=== PATIENT | female | born 1980 | race Caucasian/White ===

== ENCOUNTER 2020-08-08 15:18 | Emergency (ER) | payer MEDICAID ==
[~2020-08-08] VITALS: Ht 160 cm; Wt 104.3 kg
--- NOTE | 2020-08-08 15:19 | NUR ---
Patient to ER bed 08 to gown for evaluation. Side rails up.
--- NOTE | 2020-08-08 15:20 | NUR ---
Pt brought by self, A&Ox4, pt presents to ER with R knee pain/ swelling after slip and fall today, skin pink and warm, cap refill <3, VSS.
[2020-08-08 15:28] VITALS: BP_SYST 158
--- NOTE | 2020-08-08 15:33 | NUR ---
Dr Mohamud evaluating patient at bedside
[2020-08-08 16:28] VITALS: BP_SYST 146
--- NOTE | 2020-08-08 16:29 | NUR ---
Patient given written and verbal discharge instructions and verbalizes understanding. ER MD discussed with patient the results and treatment provided. Patient in stable condition. ID arm band removed. No Rx given. Patient educated on pain management and to follow up with PMD. Pain Scale 3/10 tolerable for pt. Opportunity for questions provided and answered. Medication side effect fact sheet provided.
== END 2020-08-08 16:29 | disposition home or self-care (01) ==
LOC: SED 15:18
DX: S83.91XA Sprain of unspecified site of right knee, initial encounter (principal); W10.9XXA Fall (on) (from) unspecified stairs and steps, initial encounter; Y93.89 Activity, other specified; Y92.89 Other specified places as the place of occurrence of the external cause; Y99.8 Other external cause status
CPT/HCPCS: 73564; 99283

== ENCOUNTER 2021-08-19 10:12 | Emergency (ER) | payer MEDICAID, SELFPAY ==
[~2021-08-19] VITALS: Ht 167.6 cm; Wt 119.7 kg
--- NOTE | 2021-08-19 10:20 | NUR ---
PT DROVE SELF TO ED C/O SOB SINCE LAST NIGHT VAPPING AND SMOKING CIGARETS. TRIAGE COMPLETE. DR GOODWIN AT BEDSIDE
[2021-08-19 10:23] VITALS: BP_SYST 133
[2021-08-19 10:51] LABS: BASOPHILS % (AUTO) 0.3 % (0.0-2.0); EOSINOPHILS # (AUTO) 0.2 K/uL (0.0-0.4); EOSINOPHILS % (AUTO) 2.4 % (0.0-4.0); HEMATOCRIT 41.5 % (36-48); HEMOGLOBIN 13.8 g/dL (12.0-16.0); LYMPHOCYTES # (AUTO) 2.2 K/uL (1.0-5.5); MEAN CORPUSCULAR HEMOGLOBIN 28 pg (27-31); MEAN CORPUSCULAR HGB CONC 33 % (32-36); MEAN CORPUSCULAR VOLUME 84 fL (79.0-98.0); MONOCYTES # (AUTO) 0.5 K/uL (0.0-1.0); NEUTROPHILS # (AUTO) 7.1 K/uL (1.8-7.7); NEUTROPHILS % (AUTO) 70.3 % (40.0-70.0); PLATELET COUNT (AUTO) 299 K/uL (130-430); RED BLOOD CELL COUNT(AUTO) 4.96 MIL/uL (4.2-6.2); RED CELL DISTRIBUTION WIDTH 14.7 % (9.0-15.0); WHITE BLOOD COUNT (AUTO) 10.1 K/uL (4.8-10.8)
[2021-08-19 11:25] LABS: ALANINE AMINOTRANSFERASE 34 U/L (12-78); ALBUMIN 3.2 g/dL (3.4-4.8); ASPARTATE AMINOTRANSFERASE 25 U/L (10-37); CALCIUM 8.3 mg/dL (8.4-11.0); CREATININE 1.06 mg/dL (0.55-1.30); GLUCOSE 110 mg/dL (70-99); TOTAL BILIRUBIN 0.3 mg/dL (0.0-1.0); UREA NITROGEN, BLOOD 12 mg/dL (8-21)
[2021-08-19 11:27] LABS: ANION GAP 9 (5-15); CHLORIDE 103 mmol/L (98-107); GFR AFRICAN AMERICAN 75 mL/min (>90); POTASSIUM 3.5 mmol/L (3.5-5.1); SODIUM SERUM 136 mmol/L (136-145)
[2021-08-19] MEDS ORDERED: IBUP-1969 PO (12:26)
[2021-08-19] MEDS ORDERED: PSEU30TA36 PO (12:26)
[2021-08-19] MEDS ORDERED: HYDR-3917 PO (12:26)
--- NOTE | 2021-08-19 12:50 | NUR ---
Patient given written and verbal discharge instructions and verbalizes understanding. ER Dr Rah VALENCIA discussed with patient the results and treatment provided. Patient in stable condition. ID arm band removed. Rx of Hydrocodon/acetaminophen 5-325, ibuprofen and pseudoephedrine hcl given. Patient educated on pain management and to follow up with PMD. Pain Scale . Opportunity for questions provided and answered. Medication side effect fact sheet provided.
[2021-08-19 13:05] VITALS: BP_SYST 143
== END 2021-08-19 13:05 | disposition home or self-care (01) ==
LOC: SED 10:12
DX: R09.1 Pleurisy (principal); Z20.822 Contact with and (suspected) exposure to COVID-19
CPT/HCPCS: 36415; 71045; 80053; 84484; 84703; 85025; 85379; 86140; 99284